=== PATIENT | female | born 1945 | race Caucasian/White ===

== ENCOUNTER 2019-10-22 08:09 | Outpatient (CLI) | payer OTHER | END 2019-10-22 08:14 | disposition home or self-care (01) | LOC: RAD 08:09 | DX: M54.2 Cervicalgia (principal) ==

== ENCOUNTER → 2020-04-24 | Outpatient (CLI) | payer OTHER | END | disposition home or self-care (01) | LOC: RAD 13:25 | PROVIDERS: ATTEND Internal Medicine Rheumatology | DX: M17.0 Bilateral primary osteoarthritis of knee (principal) ==

== ENCOUNTER 2020-08-29 07:36 | Outpatient (CLI) | payer OTHER | END 2020-08-29 07:40 | disposition home or self-care (01) | LOC: RAD 07:36 | PROVIDERS: ATTEND Specialist | DX: J45.998 Other asthma (principal); I10 Essential (primary) hypertension ==

== ENCOUNTER 2020-11-14 08:00 | Outpatient (CLI) | payer OTHER | END 2020-11-14 08:30 | disposition home or self-care (01) | LOC: PPH VACUNA 08:00 | DX: Z23 Encounter for immunization (principal) ==

== ENCOUNTER 2021-04-19 13:22 | Outpatient (CLI) | payer OTHER | END 2021-04-19 13:29 | disposition home or self-care (01) | LOC: RAD 13:22 | PROVIDERS: ATTEND Specialist | DX: J45.998 Other asthma (principal) ==

== ENCOUNTER 2021-06-07 08:00 | Outpatient (CLI) | payer OTHER | END 2021-06-07 08:30 | disposition home or self-care (01) | LOC: PPH VACUNA 08:00 | PROVIDERS: ATTEND Emergency Medicine Pediatric Emergency Medicine | DX: Z23 Encounter for immunization (principal) ==

== ENCOUNTER 2024-05-11 11:49 | Outpatient (CLI) | payer OTHER | END 2024-05-11 11:51 | disposition home or self-care (01) | LOC: RAD 11:49 | PROVIDERS: ATTEND Internal Medicine Pulmonary Disease | DX: R05.3 Chronic cough (principal) ==